=== PATIENT | female | born 1955 | race Caucasian/White ===

== ENCOUNTER → 2017-01-03 | Outpatient (CLI) | payer OTHER | END | disposition home or self-care (01) | LOC: CARD 08:42 | PROVIDERS: ATTEND Family Medicine | DX: I10 Essential (primary) hypertension (principal); R07.9 Chest pain, unspecified | CPT/HCPCS: 93017 ==

== ENCOUNTER 2018-05-24 15:00 | Outpatient (CLI) | payer OTHER | END 2018-05-24 23:59 | disposition home or self-care (01) | LOC: CFH 15:00 | PROVIDERS: ATTEND Chiropractor | DX: M47.817 Spondylosis without myelopathy or radiculopathy, lumbosacral region (principal); M47.814 Spondylosis without myelopathy or radiculopathy, thoracic region; M48.04 Spinal stenosis, thoracic region; M48.07 Spinal stenosis, lumbosacral region; M25.78 Osteophyte, vertebrae; M43.8X4 Other specified deforming dorsopathies, thoracic region; M43.24 Fusion of spine, thoracic region; M41.85 Other forms of scoliosis, thoracolumbar region; M75.32 Calcific tendinitis of left shoulder | CPT/HCPCS: 72072; 72110 ==

== ENCOUNTER → 2018-06-28 | Outpatient (CLI) | payer OTHER ==
[~2018-06-28] MED LIST: OMNIPAQUE 350 MG/ML, 100ML BOTTLE ONE
== END | disposition home or self-care (01) ==
LOC: CFH 13:03
PROVIDERS: ATTEND Family Medicine
DX: D48.0 Neoplasm of uncertain behavior of bone and articular cartilage (principal); I10 Essential (primary) hypertension; M41.80 Other forms of scoliosis, site unspecified; Z98.890 Other specified postprocedural states
CPT/HCPCS: 72129; Q9967

== ENCOUNTER 2018-07-31 19:05 | Emergency (ER) | payer OTHER ==
[~2018-07-31] VITALS: Ht 165.1 cm; Wt 81.1 kg
[~2018-07-31 19:05] MED LIST changes: +AMLO-150 PO; +ASPI-496 PO; +ENOX80SY4 SQ; +FERR324T18 PO; +HYDR25TA6 PO; +LISI5TAB7 PO; -OMNIPAQUE 350 MG/ML, 100ML BOTTLE ONE
--- NOTE | 2018-07-31 19:36 | NUR ---
BREAK RN: THIS IS A 63 YO FEMALE WHO PRESENTS TO THE ER C/O SMALL "LUMP" NOTED UNDER SOME BRUISING ON THE RLQ WHERE PT HAS BEEN INJECTING LOVENOX. PT RECENTLY IN HOSPITAL FOR ANEMIA AND BLOOD CLOTS. DENIES CP OR SOB. PT AO X4. SKIN PWD. RESP EVEN AND UNLABORED. PT NSR 90'S ON NITROGLYCERIN NEUTRALIZER. PT ON CONT BP, CARDIAC AND O2 MONITORS, AT BEDSIDE. CALL LIGHT WITHIN REACH.
[2018-07-31 19:42] LABS: ALANINE AMINOTRANSFERASE 112 U/L (12-78); ALBUMIN 3.8 g/dL (3.4-5.0); ANION GAP 10 mmol/L (5-15); CALCIUM 8.9 mg/dL (8.5-10.1); CHLORIDE 107 mmol/L (98-107)
[2018-07-31 19:43] LABS: MEAN CORPUSCULAR HEMOGLOBIN 28.7 pg (27.0-34.8); MEAN CORPUSCULAR HGB CONC 31.6 g/dL (32.4-35.8); MEAN CORPUSCULAR VOLUME 90.8 fL (80-100); MEAN PLATELET VOLUME 7.6 fL (7.4-10.4); PLATELET COUNT 600 x10^3/uL (130-400); RED BLOOD COUNT 3.64 x10^6/uL (3.82-5.3); RED CELL DISTRIBUTION WIDTH 25.1 % (9.6-15.2)
[2018-07-31 19:48] LABS: ALKALINE PHOSPHATASE 93 U/L (45-117); BILIRUBIN,TOTAL 0.5 mg/dL (0.2-1.0); TOTAL PROTEIN 6.8 g/dL (6.4-8.2)
[2018-07-31 20:11] LABS: MD YES
[2018-07-31 20:14] LABS: BASOS#(MANUAL) 0.06 x10^3/uL (0-0.1); BASOS% (MANUAL) 1 % (0-1); LYMPH#(MANUAL) 3.31 x10^3/uL (1-3.4); LYMPHS% (MANUAL) 58 % (22-44); MONOS#(MANUAL) 0.23 x10^3/uL (0.3-2.7); MONOS% (MANUAL) 4 % (2-9); SEG#(MANUAL) 2.11 x10^3/uL (1.8-6.8); SEGS% (MANUAL) 37 % (42-75)
[2018-07-31 20:16] LABS: ANISOCYTOSIS 2+; OVALOCYTES 1+
[2018-07-31 20:17] LABS: <PLATELET ESTIMATE> INCREASED; <PLT MORPHOLOGY> NORMAL PLT MORPH; HYPOCHROMIA 1+
[2018-07-31 20:50] VITALS: BP 124/79
== END 2018-07-31 20:52 | disposition home or self-care (01) ==
LOC: ED 19:57
DX: S30.1XXA Contusion of abdominal wall, initial encounter (principal); I10 Essential (primary) hypertension; X58.XXXA Exposure to other specified factors, initial encounter; Y93.89 Activity, other specified; Y92.89 Other specified places as the place of occurrence of the external cause; Y99.8 Other external cause status
CPT/HCPCS: 36415; 80053; 85025; 99284